=== PATIENT | male | born 1965 | race Caucasian/White ===

== ENCOUNTER 2020-01-20 20:49 | Observation (INO) | payer SELFPAY ==
[2020-01-20 20:57] VITALS: BP 151/90; PULSE 87; RESP 16; TEMP 36.5; O2SAT 95; BMI 32.1
--- NOTE | 2020-01-20 22:04 | XR_ITS ---
WS: [id number] RIGHT ANKLE: 3 VIEW(S) TECHNIQUE: AP, oblique(s) and lateral. HISTORY: Animal bite COMPARISON: None available. Normal anatomic alignment with no fracture or dislocation. Small well-corticated osseous densities at the medial malleolus are probably from old trauma. There i s very minimal soft tissue edema along the medial distal tibia. No significant degenerative changes at the joint spaces. No joint effusion. XR/XR ankle RT min 3V* [id number] IMPRESSION: Minimal soft tissue edema along the medial distal tibia. Tiny osseous densities at the medial malleolus probably from prior trauma.
--- NOTE | 2020-01-20 22:23 | ED_ITS ---
HPI - Extremity Problem General: Chief complaint: Extremity Injury, Lower Stated complaint: snake bite Time Seen by Provider: 01/20/20 21:51 Source: patient Mode of arrival: ambulatory Limitations: no limitations History of Present Illness: HPI Narrative: Mr. Herrera is a nice 54-year-old male who comes in after he was bitten by a snake at 8:30 PM. Patient saw the snake that was unable to grab it or capture a picture. He compared the way it looked at pictures on the Internet and determined it to be a copperhead. This time he denies any systemic signs or symptoms he only has localized pain and swelling to the right medial malleolus. Patient denies any history of health problems. Is not sure anything for this prior to coming in. He denies any other complaints or concerns. Associated symptoms: Deny chest pain, fever(s) or rash Review of Systems Const: Denies: fever(s), chills, body aches, fatigue, malaise or diaphoresis Eyes: Denies: change in vision, blurry vision, photophobia, eye discomfort, eye discharge or eye redness ENMT: Denies: throat pain, odynophagia, hoarseness, swelling of lips/tongue, ear or mastoid pain, ear discharge, change in hearing or nasal discharge Card: Denies: chest pain, palpitations, irregular heart rhythm, edema, lightheadedness, syncope, pre-syncope, dyspnea on exertion or orthopnea Resp: Denies: dyspnea, productive cough, non-productive cough, wheezing, hemoptysis or chest congestion GI: Denies: abdominal pain, nausea, vomiting, hematemesis, coffee ground emesis, heartburn, diarrhea, constipation, GI cramping, hematochezia or melena : Denies: flank pain, dysuria, urinary frequency, urinary urgency or hematuria Musc: Denies: neck pain, back pain, extremity pain, extremity swelling, joint pain, joint swelling, joint redness, joint warmth or joint stiffness Skin/Breast: Denies: rash, pruritus, erythema or skin tenderness Neuro: Denies: headache(s), numbness in extremities, weakness in extremities, sensory changes, lack of coordination, difficulty walking, dizziness, vertigo, confusion, Slurred speech present or seizure-like activity Shaun/Lymph: Denies: easy bruising, easy bleeding, petechiae, purpura or enlarged lymph nodes All/Imm: Denies: urticaria, throat swelling, tongue swelling, facial swelling or acute wheezing PFSH ED PFSH: Medical History No pertinent past medical history Surgical History No pertinent past surgical history Physical Exam Const: COMMON NORMALS: no acute distress, patient oriented x3, no limitations, healthy appearing and well nourished GENERAL APPEARANCE: cooperative, well kempt and well developed HENMT: COMMON NORMALS: normocephalic, atraumatic, external ears normal, EAC's normal and Normal external nose present HEAD & SCALP: normal to inspection, normocephalic and atraumatic FACE & SINUS: normal facial exam and face symmetric NOSE: Normal external nose present and Normal nares present EXTERNAL EAR: Yes external ears normal EXTERNAL AUDITORY CANAL: EAC's normal MOUTH: Normal oral and palatal mucosa present, lip normal and tongue normal Eye: COMMON NORMALS: Equal, round and reactive pupils present and conjunctivae normal GENERAL EYE: appearance normal, both eyes and all related structures ALIGNMENT: Yes alignment normal PERIORBITAL: periorbital findings normal EYELID: eyelids normal CONJUNCTIVA: Yes conjunctivae normal SCLERA: scle jhon normal PUPIL: Yes Equal, round and reactive pupils present Neck/C-Spine: COMMON NORMALS: full ROM, no lymphadenopathy, supple, no meningeal signs and no JVD GENERAL: Yes normal visual inspection and Yes trachea midline Chest: COMMONS NORMALS: normal inspection of the chest and normal palpation of entire chest wall Resp: COMMON NORMALS: normal respiratory effort, No retractions, No use of accessory muscles and clear to auscultation bilaterally EFFORT & INSPECTION: Yes able to speak in complete sentences and Yes symmetric chest movement AUSCULTATION: clear to auscultation bilaterally, no crackles, no rales, no rhonchi and no wheezes Cardio: COMMON NORMALS: no JVD, regular rate, regular rhythm, S1 normal heart sound present and S2 normal heart sound present RATE: regular rate RHYTHM: regular rhythm HEART SOUNDS: S1 normal heart sound present, S2 normal heart sound present, no click, no gallops, no murmurs, no rubs and abnormal split S2 GI: COMMON NORMALS: Soft to palpation and No hepatosplenomegaly present PALPATION: Yes Soft to palpation, No Tenderness to palpation present (GI), No Guarding due to palpation present (GI), No Rigid due to palpation, Yes No hepatosplenomegaly present, No Hernia present, No Palpable mass present and No Pulsatile mass present : COMMON NORMALS: Yes no CVA tenderness BLADDER/KIDNEY EXAM: Yes no CVA tenderness Back/Pelvis: COMMON NORMALS: no CVA tenderness, thoracic and lumbar spine normal to inspection, no thoracic nor lumbar tenderness and thoraco-lumbar ROM normal Extremity: COMMON NORMALS: full ROM, capillary refill normal, no joint enlargement, no clubbing, cyanosis or edema and no calf tenderness NARRATIVE EXTREMITY EXAM: 2 fang hensley with mild swelling to the medial malleolus. Neuro: COMMON NORMALS: patient oriented x3, CN's II-XII intact bilaterally, moves all extremities, no focal motor deficits and no sensory deficits noted MENINGEAL SIGNS: Yes no meningeal signs SPEECH: speech normal Psych: COMMON NORMALS: mental status grossly normal, Normal thought process present, cooperative, normal affect, speech normal and activity/motor behavior normal APPEARANCE: Yes well kempt SPEECH: Yes normal speech THOUGHT PROCESS: Normal thought process present Skin: COMMON NORMALS: no rashes or lesions noted, turgor normal, no jaundice, no petechiae and no mottling GENERAL SKIN EXAM: no rashes or lesions noted and turgor normal Course Vital Signs: Vital signs: Vital Signs Temperature 97.7 F 01/20/20 20:57 Pulse Rate 87 01/20/20 20:57 Respiratory Rate 18 01/20/20 22:37 Blood Pressure 151/90 01/20/20 20:57 Pulse Oximetry 95 01/20/20 20:57 MDM - Extremity (Nontraumatic) Lab Data: Attestation: I reviewed the patient's lab results. Labs: Lab Results 01/20/20 01/20/20 01/20/20 Range/Units 22:15 22:15 22:15 WBC 7.6 (4.0-10.0) 10^3/ uL RBC 4.87 (4.1-5.3) 10^6/u L Hgb 15.4 (11.7-16.6) g/dL Hct 45.6 (42.0-52.0) % MCV 93.6 (80-94) fL MCH 31.6 (28.0-34.0) pg MCHC 33.8 (30.0-36.0) g/dL RDW 12.6 (12.1-15.1) % Plt Count 244 (130-400) 10^3/c mm MPV 10.5 H (7.4-10.4) fL Neut % (Auto) 56.3 % Lymph % (Auto) 30.6 % [place] % (Auto) 9.6 % Eos % (Auto) 2.2 % Baso % (Auto) 0.8 % Neut # (Auto) 4.26 (1.8-7.7) 10^3/u L Lymph # (Auto) 2.3 (0.8-4.8) 10^3/u L [place] # (Auto) 0.7 (0.2-0.9) 10^3/u L Eos # (Auto) 0.2 (0.0-0.8) 10^3/u L Baso # (Auto) 0.1 (0.0-0.1) 10^3/u L Nucleated RBC % (a uto) 0 % Nucleated RBCs # 0.0 /100WBC PT 12.70 (12.1-14.9) SECO NDS INR 0.93 (0.8-1.2) APTT 25.1 (23.9-36.7) SECO NDS Fibrinogen 265 (174-498) mg/dL D-Dimer <= 0.27 (0-0.59) ug/mIFE U Sodium 139 (136-145) mmol/L Potassium 4.0 (3.5-5.1) mmol/L Chloride 104 (98-107) mmol/L Carbon Dioxide 23 (22-29) mmol/L Anion Gap 16.0 (5-19) BUN 18 (6-20) mg/dL Creatinine 1.1 (0.7-1.2) mg/dL Calculated Osmolal ity 295 (285-295) mOsm/k g Calcium 8.8 (8.5-10.5) mg/dL Magnesium 2.0 (1.7-2.3) mg/dL Total Bilirubin 0.4 (0.15-1.2) mg/dL AST 19 (0-40) U/L ALT 29 (0-41) U/L Alkaline Phosphata se 73 (40-130) IU/L Creatine Kinase 182 (39-308) U/L Total Protein 7.0 (6.6-8.7) g/dL Albumin 4.4 (3.5-5.2) g/dL Globulin 2.6 (1.3-4.6) g/dL Imaging Data^: Right Ankle: Attestation: I personally reviewed and interpreted this imaging study as follows: My impression: No fracture or foreign body present Discharge Plan Discharge Patient Disposition: Placed in Observation Clinical Impression: Snake envenomation Qualifiers: Encounter type: initial encounter Injury intent: accidental or unintentional Qualified Code(s): T63.001A - Toxic effect of unspecified snake venom, accidental (unintentional), initial encounter Condition: Stable Coding Level of Care Code ED Knife Setter Grinder Machine for Enrrique Fwgordo Exam Comprehensive
[2020-01-20 22:31] LABS: Basophils # 0.1 10^3/uL (0.0-0.1); Basophils % 0.8 %; Eosinophils # 0.2 10^3/uL (0.0-0.8); Eosinophils % 2.2 %; Hematocrit 45.6 % (42.0-52.0); Hemoglobin 15.4 g/dL (11.7-16.6); Lymphocytes # 2.3 10^3/uL (0.8-4.8); Lymphocytes % 30.6 %; Mean Corpuscular HGB Conc 33.8 g/dL (30.0-36.0); Mean Corpuscular Hemoglobin 31.6 pg (28.0-34.0); Mean Corpuscular Volume 93.6 fL (80-94); Mean Platelet Volume 10.5 fL (7.4-10.4); Monocytes # 0.7 10^3/uL (0.2-0.9); Monocytes % 9.6 %; Neutrophils # 4.26 10^3/uL (1.8-7.7); Neutrophils % 56.3 %; Nucleated Red Blood Cells % 0 %; Platelet Count 244 10^3/cmm (130-400); Red Blood Count 4.87 10^6/uL (4.1-5.3); Red Cell Distribution Width 12.6 % (12.1-15.1); White Blood Count 7.6 10^3/uL (4.0-10.0)
[2020-01-20 22:37] VITALS: RESP 18
[2020-01-20] MEDS: sodium chloride 0.9% 1,000 ML 100 ML IV (22:37)
[2020-01-20] MEDS: morphine 4 mg/mL SDV 1 mL IVP (22:37)
[2020-01-20] MEDS: ondansetron 2 mg/ML SDV 2 mL 4 MG IVP (22:37)
[2020-01-20] MEDS: tetanus-diphtheria tox (adult) 0.5 mL SDV IM (22:38)
[2020-01-20 22:51] LABS: Alanine Aminotransferase 29 U/L (0-41); Albumin Level 4.4 g/dL (3.5-5.2); Alkaline Phosphatase 73 IU/L (40-130); Aspartate Amino Transferase 19 U/L (0-40); Blood Urea Nitrogen 18 mg/dL (6-20); Calcium 8.8 mg/dL (8.5-10.5); Carbon Dioxide 23 mmol/L (22-29); Chloride 104 mmol/L (98-107); Creatine Phosphokinase 182 U/L (39-308); Globulin 2.6 g/dL (1.3-4.6); Glomerular Filtration Rate 69.8 mL/min (90-130); Glucose 286 mg/dL (65-115); Osmolality Calculated 295 mOsm/kg (285-295); Sodium 139 mmol/L (136-145); Total Bilirubin 0.4 mg/dL (0.15-1.2)
[2020-01-20 23:00] LABS: INR 0.93 (0.8-1.2)
[2020-01-20 23:01] LABS: Partial Thromboplastin Time 25.1 SECONDS (23.9-36.7)
[2020-01-20 23:02] LABS: Fibrinogen 265 mg/dL (174-498)
[2020-01-20 23:07] LABS: D Dimer <= 0.27 ug/mIFEU (0-0.59)
--- NOTE | 2020-01-20 23:07 | PM.HP ---
Providers/Chief Complaint Chief Complaint: snake bite History of Present Illness Kartik Herrera is a 54 year old male with no known past medical history came in after a snakebite. Patient is stating that he is visiting his friend here at the [facility], around 8:30 PM he was loading his truck to prepare for his journey tomorrow, after dinner he went and got stung by a snake, he thinks he probably stepped on it. He could not take pictures of the snake but searched on Internet and thinks it was a copperhead snake. Since then he has been noticing burning sensation around his right ankle area, with mild swelling, he is denying fever, chills, nausea, vomiting, Reiger's, fever, chest pain shortness of breath. Diagnosis in the ER revealed normal CBC, BMP DIC profile negative, poison control recommended monitoring for 8 to 12 hours, repeat labs in 12 hours, if he develops systemic or worsening of local signs then administer CroFab. Currently he is on normal saline, afebrile, hypertensive, patient is endorsing feeling anxious. Ankle x-ray with mild soft tissue swelling hemodynamically stable Review of Systems Const: Denies: fever(s) or chills Eyes: Denies: change in vision ENMT: Denies: throat pain Card: Denies: chest pain Resp: Denies: dyspnea GI: Denies: abdominal pain : Denies: flank pain Musc: Reports: joint pain, joint swelling, joint redness, joint warmth, joint stiffness and limited range of motion; Denies: neck pain Skin/Breast: Reports: new lesions (Right ankle snakebite) Neuro: Denies: headache(s) Psych: Reports: anxiety Endo: Denies: polyuria Shaun/Lymph: Denies: easy bruising All/Imm: Denies: urticaria Medications/Allergies Allergies Allergy/AdvReac Type Severity Reaction Status Date / Time No Known Allergies Allergy Verified 01/20/20 21:04 PFSH Acute PFSH: Medical History (Updated 01/20/20 @ 23:11 by Velma Worley) No pertinent past medical history Surgical History (Updated 01/20/20 @ 23:40 by Ayse Ramirez MD) History of arthroplasty of left ankle Previous back surgery Family History (Updated 01/20/20 @ 23:41 by Ayse Ramirez MD) Father CAD (coronary artery disease) Cancer Other Hypertension Social History (Updated 01/20/20 @ 23:41 by Ayse Ramirez MD) Smoking and tobacco status: never smoked Alcohol intake: current Alcohol intake frequency: holidays/special occasions only Alcohol type: beer Lives independently: Yes Household members: spouse Housing: House Vitals/I&O/Wt Last Vital Signs Temp 97.7 F 01/20/20 20:57 Pulse 87 01/20/20 20:57 Resp 18 01/20/20 22:37 BP 151/90 01/20/20 20:57 Pulse Ox 95 01/20/20 20:57 Weight last 48 hrs Weight 95.708 kg Physical Exam Narrative: EXAM NARRATIVE: Pleasant gentleman Patient is endorsing feeling anxious, currently hypertensive, normal saline at the bedside S1, S2 no tachycardia or signs of heart failure Well-built male No active respiratory distress No active Vandana's No abdominal pain, bowel sound present nontender Lungs are clear to auscultation S1-S2 no murmur Neurologically nonfocal exam Right ankle swelling, area demarcated, no active cellulitis, tender to palpation, no active hyperemia, No signs of skin breakdown, blisters or vascular compromise Data : 01/20/20 22:15 01/20/20 22:15 A&P Assessment and plan (1) Snake envenomation: Status: Acute Qualifiers: Encounter type: initial encounter Injury intent: accidental or unintentional Qualified Code(s): T63.001A - Toxic effect of unspecified snake venom, accidental (unintentional), initial encounter Additional A&P Information Snake envenomation Happened at 8:30 PM Local swelling without signs of cellulitis Poison control recommended monitoring for 8 to 12 hours, CPK, DIC profile ordered, patient is currently hemodynamically stable, no systemic signs, no muscle rigidity, Reiger's or shortness of breath Continue normal saline fluid resuscitation, Will use CroFab if local signs are worsening or he develops systemic signs Monitor for DIC Tylenol for local pain, I would use Ativan 0.5 mg p.o. x1 for now Repeat labs in the morning Admit to [facility] Serial right lower extremity exams DVT prophylaxis: Patient is low risk, we are monitoring for signs of DIC, I would avoid adding anticoagulant at this time Regular diet Full code Attestations Medical Necessity Statement*: Anticipating discharge in less than 48 hours continued monitoring for local snakebite without systemic signs or cellulitis Time Spent in Patient Care: (>than 50% of time spent in counselling and/or direct pt care on unit). 50mins Coding Level of Care Code Acute Industrial Psychology Teacher for Enrrique Johnson Diagnoses Snake envenomation T63.001A Encounter type: initial encounter Injury intent: accidental or unintentional
[2020-01-20 23:11] VITALS: BP 161/88; PULSE 88; RESP 18; O2SAT 98
[2020-01-20 23:13] LABS: Add Urine Microscopic? NO
[2020-01-20 23:16] LABS: Bilirubin Urine Neg (NEGATIVE); Blood Urine Neg (Negative); Glucose Urine UA 4+ (Normal); Ketones Urine 1+ (Negative); Leukocyte Esterase Urine Negative (Negative); Nitrate Urine Negative (Negative); Protein Urine Neg (Negative); Urine Appearance Clear (CLEAR); Urine Color Yellow (Yellow); Urobilinogen Urine Norm (Negative); pH Urine 5 (5-7)
[2020-01-20 23:19] VITALS: RESP 18
[2020-01-20] MEDS: HYDROmorphone 1 mg/mL INJ 1 mL 0.5 MG IVP (23:19)
[2020-01-20 23:39] VITALS: BP 164/86; PULSE 72; RESP 18; O2SAT 97
[2020-01-21] VITALS (9 sets, daily range): BP systolic 127–177; BP diastolic 74–94; PULSE 56–74; RESP 16–22; TEMP 36.4–37.1; O2SAT 95–97
[2020-01-21] MEDS: LORazepam 0.5 mg Tablet PO (00:10)
[2020-01-21] MEDS: sodium chloride 0.9% 1,000 ML 75 ML IV ×2 (00:12→12:46)
--- NOTE | 2020-01-21 00:21 | PC.NURSE ---
ADMIT NOTE Pt to floor from ER at 2350 via gurney. Alert and oriented. Very pleasant. Received snakebite to right foot just below medial ankle. Has 2 puncture sites. Swelling around the foot and ankle marked from ER. Measurements taken at ankle and mid calf. Ankle 27.5cm, and mid calf 42 cm. Foot is elevated. Says still pain but recent pain med in ER. Given one time dose of po Ativan ordered. IV fluids started at 75ml/hr rate. Voided per urinal. Denies any nausea and is hoping to go home in the am. RN completing admission assessment.
[2020-01-21] MEDS: morphine 4 mg/mL SDV 1 mL IVP ×3 (01:53→10:03)
--- NOTE | 2020-01-21 05:55 | PC.NURSE ---
SHIFT SUMMARY Has rested for periods. Medicated X2 with IV Morphine for pain in right foot. Had to call Dr once for early dose due to increased pain. Describes pain as a burning hot pain. Measurements of foot and calf same this am as on admit. Swelling remains around foot and ankle. Has denied any nausea. Voiding well per urinal. IV infusing without difficultyl
[2020-01-21 06:11] LABS: Basophils # 0.1 10^3/uL (0.0-0.1); Basophils % 0.6 %; Eosinophils # 0.2 10^3/uL (0.0-0.8); Eosinophils % 2.1 %; Hematocrit 46.3 % (42.0-52.0); Hemoglobin 14.9 g/dL (11.7-16.6); Lymphocytes # 2.9 10^3/uL (0.8-4.8); Lymphocytes % 36.4 %; Mean Corpuscular HGB Conc 32.2 g/dL (30.0-36.0); Mean Corpuscular Hemoglobin 30.1 pg (28.0-34.0); Mean Corpuscular Volume 93.5 fL (80-94); Mean Platelet Volume 10.5 fL (7.4-10.4); Monocytes # 0.7 10^3/uL (0.2-0.9); Monocytes % 9.3 %; Neutrophils # 4.08 10^3/uL (1.8-7.7); Neutrophils % 51.3 %; Nucleated Red Blood Cells % 0 %; Platelet Count 229 10^3/cmm (130-400); Red Blood Count 4.95 10^6/uL (4.1-5.3); Red Cell Distribution Width 12.6 % (12.1-15.1)
[2020-01-21 06:28] LABS: INR 0.97 (0.8-1.2)
[2020-01-21 06:29] LABS: Partial Thromboplastin Time 25.9 SECONDS (23.9-36.7)
[2020-01-21 06:30] LABS: Fibrinogen 238 mg/dL (174-498)
[2020-01-21 06:33] LABS: Alanine Aminotransferase 23 U/L (0-41); Albumin Level 3.7 g/dL (3.5-5.2); Alkaline Phosphatase 70 IU/L (40-130); Anion Gap 13.1 (5-19); Aspartate Amino Transferase 18 U/L (0-40); Blood Urea Nitrogen 14 mg/dL (6-20); Calcium 8.4 mg/dL (8.5-10.5); Carbon Dioxide 23 mmol/L (22-29); Chloride 105 mmol/L (98-107); Glomerular Filtration Rate 69.8 mL/min (90-130); Glucose 197 mg/dL (65-115); Osmolality Calculated 286 mOsm/kg (285-295); Potassium 4.1 mmol/L (3.5-5.1); Sodium 137 mmol/L (136-145); Total Bilirubin 0.4 mg/dL (0.15-1.2); Total Protein 5.7 g/dL (6.6-8.7)
[2020-01-21 06:36] LABS: D Dimer 0.29 ug/mIFEU (0-0.59)
[2020-01-21] MEDS: sennosides-docusate Tablet 1 TAB PO (10:04)
--- NOTE | 2020-01-21 10:08 | PC.NURSE ---
PRN pain medication given for a pain level of 8 on 0-10 pain scale. see MAR for further details.
[2020-01-21] MEDS: acetaminophen 325 mg Tablet 650 MG PO (12:45)
--- NOTE | 2020-01-21 12:58 | PC.NURSE ---
Patient requests to stay another night after speaking to doctor in rounding states, I realize 18 hours is a bit much to drive right now, I am tired and hurting. Dr. Ulrich notified.
[2020-01-21] MEDS: HYDROcodone-acetaminophen 5-325 mg Tablet 1 TAB PO ×2 (14:20→19:30)
--- NOTE | 2020-01-21 16:09 | PM.PN ---
Subjective Subjective: Interval history: Pain is a little bit better, but is still very tender, to touch, as well as to bending his ankle. Has some swelling about the ankle as well. Top part of the calf is not swollen or tender. But apparently calf has some tenderness and swelling. Vitals/I&O/Wt Last Vital Signs Temp 98.0 F 01/21/20 16:07 Pulse 56 L 01/21/20 16:07 Resp 18 01/21/20 16:07 BP 127/76 01/21/20 16:07 Pulse Ox 95 01/21/20 16:07 01/21/20 01/21/20 01/21/20 06:59 14:59 22:59 Intake Total 300 / 300 1662.5 / 1662.5 Output Total 550 / 550 200 / 200 Balance -250 / -250 1462.5 / 1462.5 Weight last 48 hrs Weight 95.708 kg Physical Exam Const: COMMON NORMALS: no acute distress and patient oriented x3 HENMT: COMMON NORMALS: oropharynx normal Neck/C-Spine: COMMON NORMALS: no JVD Resp: COMMON NORMALS: normal respiratory effort and clear to auscultation bilaterally AUSCULTATION: clear to auscultation bilaterally Cardio: COMMON NORMALS: no JVD, regular rhythm, S1 normal heart sound present, S2 normal heart sound present and No murmurs present (Cardio) RHYTHM: regular rhythm HEART SOUNDS: S1 normal heart sound present and S2 normal heart sound present GI: COMMON NORMALS: Normal to inspection, nondistended, normoactive bowel sounds present, Soft to palpation and non-tender PALPATION: Yes Soft to palpation Extremity: GENERAL: Yes edema (Edema of the medial right ankle. I see demarcation from around 11 PM history, the bulge at the medial right ankle does not appear to cross the demarcation, however, there is some swelling posteriorly in the lower calf which is tender, as well as some swelling laterally in the calf which is nontender) OTHER: Swelling in the right lower extremity appears somewhat pale at first glance compared to lower leg above the ankle, however, on taking of the sock on the left side left foot appears pale as well, with no difference initiate. There is otherwise no discoloration, no ecchymosis, no drainage from sites of entry of the fangs. No signs of hypoperfusion. Demarcation of pulse with Doppler is visible. He has no loss of sensation. He is moving his toes. Neuro: COMMON NORMALS: patient oriented x3 and moves all extremities Skin: COMMON NORMALS: no rashes or lesions noted GENERAL SKIN EXAM: no rashes or lesions noted Data : 01/21/20 05:28 01/21/20 05:28 A&P Assessment and plan (1) Snake envenomation: With some cytotoxic reaction, with swelling, pain at time medial right ankle, with also noted some swelling and pain of lesser degree at the posterior lower calf, some in the lateral right lower leg, not reaching the knee, not extending beyond. He does have quite a bit of tenderness even on touch, and very tender on dorsiflexion of the ankle. Cannot really bear weight. At this time I do not see signs of hypoperfusion, although foot/ankle appears pale, but it is the same coloration as the left side, and otherwise feels warm and perfused, he has no loss of sensation, and is able to move his toes. Due to some additional swelling in other areas I ordered venous duplex ultrasound which is still pending. Discussed his condition with poison control, and they suggested pain and swelling is quite expected, and unless reaches to and beyond the knee CroFab at this time is not indicated. As he is having quite severe pain, he did not feel secure discharging from the hospital at this time, as he is from out of town. He drove here 18 hours for a work trip from [place] where he is normally employed. The duplex study is also not done yet, so we will keep him additional night for observation. Per discussion with poison control progression to compartment syndrome is rare. Per poison control no further need for reassessment of blood studies. Other recommendations from poison control include rest, elevation of extremity, avoiding application of ice, and opioids for pain control. Per request switch IV morphine to oral opioid. Discussed all this with him. He does request on discharge if he could be provided with instructions as to what he needs to be doing, and when he may be able to return to work. 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 Status: Acute Qualifiers: Encounter type: initial encounter Injury intent: accidental or unintentional Qualified Code(s): T63.001A - Toxic effect of unspecified snake venom, accidental (unintentional), initial encounter Attestations Medical Necessity Statement*: Continue hospitalization for assessment management following snakebite and envenomation with cytotoxic reaction of right lower extremity. Coding Level of Care Code Acute Investigations Manager for Enrrique Fwd Exam Comprehensive Diagnoses Snake envenomation T63.001A Encounter type: initial encounter Injury intent: accidental or unintentional
--- NOTE | 2020-01-22 | USCV_ITS ---
Kartik Herrera Age: 54 Gender: M : 1965 Exam Date: 01/22/2020 06:45 Ordering Phys: Heladio Ulrich MD Technologist: Maritza Deluca [place] [facility] [place]: SWELLING Aortic Velocity @ SMA (cm/s) FINDINGS Normal 2-D Doppler and augmentation and compressibility throughout the lower extremity venous structures. Additional imaging through the proximal calf veins also reveals no thrombus. Limited evaluation of the greater saphenous vein is patent with no thrombus. CONCLUSIONS No DVT right lower extremity. Dr. Blanka Hoover DO Edited by: [facility] Recovery Room Rn (Electronically Signed) Final Date: 22 January 2020 16:29 Amended: 23 January 2020 07:13 C
[2020-01-22] MEDS: HYDROcodone-acetaminophen 5-325 mg Tablet 1 TAB PO (00:06)
[2020-01-22 00:51] VITALS: BP 118/74; PULSE 61; RESP 18; TEMP 36.6; O2SAT 98
[2020-01-22 04:40] VITALS: BP 119/73; PULSE 51; RESP 18; TEMP 36.6; O2SAT 95
[2020-01-22 07:02] VITALS: BP 122/72; PULSE 56; RESP 18; TEMP 36.7; O2SAT 95
[2020-01-22 10:51] VITALS: BP 136/80; PULSE 59; RESP 18; TEMP 36.8; O2SAT 97
--- NOTE | 2020-01-22 15:10 | P.DS_ITS ---
Discharge Providers Date of Admission: 01/20/20 23:03 Date of Discharge: January 22, 2020 Attending Provider at Admission: Ayse Ramirez MD Attending Provider at Discharge: Elizabeth Cowart MD Primary Care Provider: DOCTOR NOT ON FILE Diagnoses at Discharge Discharge Diagnosis (1) Snake envenomation: Status: Acute Qualifiers: Encounter type: initial encounter Injury intent: accidental or unintentional Qualified Code(s): T63.001A - Toxic effect of unspecified snake venom, accidental (unintentional), initial encounter Reason for Visit Reason for Visit: snake bite Hospital Course Discharge Summary: 54 year old male without significant PMH p/w snake bite while loading his trailer. He was noted to have intense cytotoxic edema. Discussed with poison control, no CroFab unless gets to the knee and above. His edema has persisted but appears to be stable overall. There are no signs of cellulitis. no fever. Venous duplex without evidence of DVT. Ankle X ray with minimal soft tissue edema along the medial distal tibia. Per poison control, expect edema to linger for about a month or so, until then he would need to keep foot elevated, take breaks every 2-3 hrs. Physical Exam Narrative: EXAM NARRATIVE: GEN: Awake, alert and oriented, no acute distress CVS: S12 N RS: CTA B/L except crackles over RUL Abd: Soft, nt/nd , bs+ FILAMENT WELDER: no focal neuro deficits Discharge Data Data Completed and Pending: Completed Studies During Hospitalization Category Date Time Status XR ankle RT min 3 V* [id number] Stat Exams 01/20/20 22:04 Completed Pending at discharge Category [place] [id number] Routin e Ultrasound 01/22/20 06:00 Taken Vitals: Last Vital Signs Temp 98.3 F 01/22/20 10:51 Pulse 59 L 01/22/20 10:51 Resp 18 01/22/20 10:51 BP 136/80 01/22/20 10:51 Pulse Ox 97 01/22/20 10:51 Discharge Plan Discharge Patient Disposition: Home Condition: Stable Prescriptions: New hydrocodone-acetaminophen 5-325 mg Tablet 1 tab PO Q4H PRN (Reason: Moderate Pain) 5 Days Qty: 20 RF: 0 diphenhydramine HCl 25 mg Capsule 25 mg PO Q6H PRN (Reason: Itching) Qty: 0 RF: 0 Continued Aleve 220 mg Tablet 440 mg PO PRN RF: 0 Discharge Orders: Discharge Order (Routine); Ordered 01/22/20 Ordered By: Elizabeth Cowart Discharge Diet: Usual diet Discharge Activity: Resume usual activity Activity Restrictions/Additional Instructions: per discussion with poison control, edema and swelling may take up to one month to improve and may be a cause of significant pain and some degree of mobility restriction Stand Alone Forms: Work/School Release Discharge Attestations Time Spent in Discharge Care*: less than 30 min Quality Metrics Clinical Quality Measures During this hospital stay, did patient experience: None Coding Level of Care Code Acute Manager Application for g Fwd Diagnoses Snake envenomation T63.001A Encounter type: initial encounter Injury intent: accidental or unintentional
[2020-01-22 15:16] VITALS: BP 141/83; PULSE 60; RESP 18; TEMP 36.7; O2SAT 96
[2020-01-22 16:54] VITALS: BP 141/83; PULSE 60; RESP 18; TEMP 36.7; O2SAT 96
== END 2020-01-22 17:04 | disposition home or self-care (01) ==
LOC: ER 23:11 → MEDSURG 23:25
PROVIDERS: Emergency Medicine; Admitting Provider Internal Medicine; Visit Provider Student in an Organized Health Care Education/Training Program
DX: T63.001A Toxic effect of unspecified snake venom, accidental (unintentional), initial encounter (principal); R60.0 Localized edema; M25.571 Pain in right ankle and joints of right foot
CPT/HCPCS: 12345; 36415; 73610; 80053; 81003; 82550; 83735; 85025; 85362; 85378; 85384; 85610; 85730; 90471; 90714; 93971; 96360; 96361; 96374; 96375; 99283; 99285; G0378; J1170; J2270; J2405; J7030